=== PATIENT | male | born 1970 | race Caucasian/White ===

== ENCOUNTER 2022-07-18 06:35 | Emergency (ER) | payer OTHER, SELFPAY ==
[2022-07-18 06:36] VITALS: BP 165/108; PULSE 103; RESP 22; TEMP 36.6; O2SAT 97; BMI 33.3
--- NOTE | 2022-07-18 06:41 | EKG12_ITS ---
Test Reason : CP Blood Pressure : / mmHG Vent. Rate : 099 BPM Atrial Rate : 099 BPM P-R Int : 156 ms QRS Dur : 086 ms QT Int : 340 ms P-R-T Axes : 047 045 029 degrees QTc Int : 436 ms Normal sinus rhythm Normal ECG Confirmed by GINNA WAKEFIELD, PALOMA ([id number]), staff editor RAMYA RAMOS ([id number]) on 07/19/2022 7:42:29 AM Referred By: BERNADETTE Confirmed By:PALOMA CHACKO MD
--- NOTE | 2022-07-18 06:41 | RAD_ITS ---
INDICATION: CHEST PAIN EXAMINATION/TECHNIQUE: X-RAY - XR Chest 1 View COMPARISON: None. FINDINGS: LINES/DEVICES: None. LUNGS: Mild emphysematous changes within upper lungs. No pulmonary edema or focal airspace consolidation. No sizable pleural effusion. No pneumothorax detected. MEDIASTINUM AND CARDIOVASCULAR STRUCTURES: Heart size within normal limits. Mediastinal contours unremarkable. BONES AND SOFT TISSUES: No acute findings. RAD/Chest 1 View (Portable) IMPRESSION: COPD Electronically Signed: Adama Renteria MD at 7:24 EDT ,
[2022-07-18 07:01] LABS: Absolute Lymphocyte Count 2.33 X10^3/uL (0.83-4.51); Absolute Neutrophil Count 3.1 X10^3/uL (2.0-7.7); Basophil# 0.04 X10^3/uL; Basophil% 0.6 % (0-1); Eosinophil# 0.29 X10^3/uL; Eosinophils% 4.4 % (0-5); Hematocrit 45.1 % (40-54); Lymphocyte # 2.33 X10^3/ul (0.83-4.51); Mean Corp Hgb Conc 33.3 g/dL (32-36); Mean Corpuscular Hgb 28.8 pg (27.0-32.0); Mean Corpuscular Volume 86.6 fL (80-94); Mean Platelet Vol. 9.6 fl (6.2-12.0); Monocyte# 0.91 X10^3/uL; Monocyte% 13.7 % (0-10); NRBC Flagged by Analyzer 0 % (0-5); Neutrophil # 3.05 X10^3/uL (2.7-7.7); Neutrophil % 45.7 % (47-70); Platelet Count 271 K/mm3 (150-450); RBC Distribution Width CV 13.1 % (11.6-14.6); Red Blood Count 5.21 M/mm3 (4.6-6.2); White Blood Count 6.7 K/mm3 (4.4-11.0)
[2022-07-18 07:17] LABS: Anion Gap 7 (5-15); BUN 18 mg/dL (7-18); Calcium,Total 9.1 mg/dL (8.5-10.1); Chloride 102 mmol/L (98-107); EST Glomerular Filtration Rate 84 mL/min (>60); Est Glom Filt Rate - Afr Amer 102 mL/min (>60); Estimated Creatinine Clearance 88.38 ml/min; Glucose 111 mg/dL (74-106); Potassium 4.1 mmol/L (3.5-5.1); Sodium Level 137 mmol/L (136-145); Troponin-I HS 6 pg/mL (3.0-78.0)
--- NOTE | 2022-07-18 07:36 | EDS_ITS ---
HPI History of Present Illness Chief Complaint: Chest Pain Informant: patient Onset/Context/Timing Onset: Today Activity at onset: sudden Timing: Intermittent and Lasts (Few seconds) Quality: Positive for Burning and Sharp Location: Substernal and Left Parasternal Worsened By: Nothing Relieved By: Nothing Associated Symptoms: Positive for Diaphoresis and Acid Reflux; Negative for Nausea, Vomiting, Dyspnea, Cough, Fever, Lightheadedness or Palpitations Narrative Narrative: Patient presents with chest pain that began this morning. Patient states it was intermittent throughout the morning. Patient states it lasts a few seconds. Patient describes the pain as sharp and burning. Patient states it is over the substernal and left parasternal area. Patient states nothing makes it better nothing makes it worse. Patient states he did break out into a sweat this morning. Patient also states he has a history of acid reflux. Patient denies any fevers or chills. Patient denies any shortness of breath. Patient denies any nausea or vomiting. Patient denies any history of PE risk factors. Patient has a history of hypertension but denies any other cardiac risk factors. [facility] Medical History (Updated 07/18/22 @ 10:[address] Homero Hutson DO) Hypertension Home Medications lisinopril 10 mg tablet (Zestril) 10 mg PO DAILY 07/18/22 [History Last Taken Unknown] Allergy/AdvReac Type Severity Reaction Status Date / Time No Known Allergies Allergy Verified 07/18/22 06:42 Surgical History (Updated 07/18/22 @ 07:[address] Homero Hutson DO) S/P excision of lipoma Social History Smoking Status: Never smoker ROS ROS ED Constitutional Constitutional ED: Reports sweats; Denies chills or fever(s) Eyes Eyes: Denies blurry vision or change in vision ENT ENT ED: Denies rhinorrhea or sore throat Cardiovascular Cardiovascular: Reports chest pain; Denies palpitations Respiratory/Chest Respiratory/Chest: Denies cough or dyspnea Gastrointestinal Gastrointestinal: Denies abdominal pain, nausea or vomiting Genitourinary Genitourinary ED: Denies dysuria or hematuria Musculoskeletal Musculoskeletal: Denies back pain or neck pain Integumentary Denies abscess or rash Neurologic Neurologic: Denies headache(s) or weakness Allergic/Immunologic Allergic/Immunologic ED: Denies mouth swelling or urticaria EXAM Physical Exam Const Vital Signs: 07/18/22 06:36 07/18/22 06:40 07/18/22 08:32 Temperature 97.8 F Temperature Source Temporal Pulse Rate 103 H 105 H Respiratory Rate 22 H 14 Respiratory Effort Normal Non-Labored Blood Pressure 165/108 H 142/87 H Blood Pressure Mean 127 105 Pulse Ox 97 98 Oxygen Delivery Method Room Air Room Air 07/18/22 10:13 Temperature Temperature Source Pulse Rate 92 Respiratory Rate 18 Respiratory Effort Blood Pressure 128/88 H Blood Pressure Mean 101 Pulse Ox 95 Oxygen Delivery Method Room Air Positive well nourished and well developed General Appearance ED: well developed and NAD HEENT Reports moist mucous membranes normocephalic and atraumatic Eyes PERRL and EOMs intact bilaterally Neck supple and no JVD Chest Wall palpation of chest normal Resp normal respiratory effort and clear to auscultation bilaterally Effort and Inspection: Negative for respiratory distress Cardio regular rate, regular rhythm and no murmurs GI normal to inspection, nondistended, normoactive bowel sounds, soft to palpation, non-tender and non-distended Extremity normal to inspection General Extremety ED: Negative for edema or tenderness General Extremity: Negative for edema Neuro oriented x3, CN's II-XII intact bilaterally and no sensory deficits noted Sensorium / Orientation: awake and alert Motor Exam: strength 5/5 throughout Psych mental status grossly normal Heart Score History: Slightly/Non-Suspicious ECG: Normal Age: >45 - <65 years Risk Factors: 1 or 2 Risk Factors Troponin: </= Normal Limit Score: 2 MDM MDM MDM Narrative Medical decision making narrative: EKG was obtained. On my interpretation, it showed a normal sinus rhythm with a rate of 99. NE interval, QRS interval, and QTc intervals were all normal. Gary was normal. There are no acute ST or T wave changes. Portable 1 view chest x- ray was obtained. On my interpretation, lung oreilly are clear. There is normal cardiac silhouette. Bony thorax is normal. There is no acute process noted. Radiologist also interpreted the x-ray and agrees. CBC was within normal limits. Basic metabolic profile was essentially within normal limits. High- sensitivity troponin was normal. 2-hour repeat high-sensitivity troponin was normal. Patient was given a GI cocktail here. Patient had no change in his pain with this. Patient has a HEART score of 2. Patient was advised that this is low risk for acute cardiac event. Patient was instructed to follow-up with his primary care physician in 5 to 7 days. Patient understood and was agreeable with the plan. All questions were answered. Lab Data Attestation: I reviewed the patient's lab results. Labs: Laboratory Results - last 24 hr 07/18/22 07/18/22 07/18/22 06:40 06:40 09:00 WBC 6.7 RBC 5.21 Hgb 15.0 Hct 45.1 MCV 86.6 MCH 28.8 MCHC 33.3 RDW Std Deviation 41.0 RDW Coeff of Andressa 13.1 Plt Count 271 MPV 9.6 Immature Gran % (Auto) 0.600 Neut % (Auto) 45.7 L Lymph % (Auto) 35.0 Nance % (Auto) 13.7 H Eos % (Auto) 4.4 Baso % (Auto) 0.6 Absolute Neuts (auto) 3.1 Absolute Lymphs (auto) 2.33 Nucleated RBC % 0 Sodium 137 Potassium 4.1 Chloride 102 Carbon Dioxide 28.0 Anion Gap 7 BUN 18 Creatinine 1.00 Estim Creat Clear Calc 88.38 Est GFR (MDRD) Af Amer 102 Est GFR (MDRD) Non-Af 84 BUN/Creatinine Ratio 18.0 Glucose 111 H Calcium 9.1 Troponin I High Sens 6 5 Radiography Chest X-Ray - ED: 1 View, Read by ED Physician, Read by Radiologist and No Acute Disease Diagnostic Testing: Clinical Impression(s) from Imaging Studies Chest X-Ray 07/18/22 06:41 IMPRESSION: COPD Electronically Signed: Adama Renteria MD at 7:24 EDT , Discharge Plan Triage Chief Complaint: Chest Pain ED Provider: Homero Hutson Dx/Rx/DC Orders Clinical Impression: Chest pain, Hypertension Instructions: ED Chest Pain, Uncertain Cause Prescriptions: No Action lisinopril [Zestril] 10 mg Tablet 10 mg PO DAILY Primary Care Provider: Nick Osorio Referrals: Nick Osorio MD [Primary Care Provider] - 5-7 Days Disposition Disposition: Home, Self Care
[2022-07-18] MEDS: Mag Hydrox/Al Hydrox/Simeth 30 ML UDC PO (08:30)
[2022-07-18 08:32] VITALS: BP 142/87; PULSE 105; RESP 14; O2SAT 98
[2022-07-18 09:49] LABS: Troponin-I HS 5 pg/mL (3.0-78.0)
[2022-07-18 10:13] VITALS: BP 128/88; PULSE 92; RESP 18; O2SAT 95
[2022-07-18 10:45] VITALS: BP 128/88
== END 2022-07-18 10:46 | disposition home or self-care (01) ==
PROVIDERS: Emergency Provider Emergency Medicine; PCP Internal Medicine; Visit Provider Emergency Medicine
DX: R07.9 Chest pain, unspecified (principal); I10 Essential (primary) hypertension; Z79.899 Other long term (current) drug therapy
CPT/HCPCS: 71045; 80048; 84484; 85025; 93005; 99283; A4216

== ENCOUNTER → 2022-09-21 | Outpatient (CLI) | payer OTHER, SELFPAY ==
--- NOTE | 2022-09-21 13:00 | MASS_PTH ---
PATIENT: JESICA CRANE [facility] U[facility][id number] AGE/SX: 52/M ROOM: RE09/21/[address]: Dr. Glen Fatima MD : 1970 BED: DIS: 09/21/2022 SPEC #: [id number] RECD: 09/22/22 08:53 STATUS: LUIS SMALLS #: [id number] VAL: 09/21/22 13:[address]: Glen Fatima DEPT: SURGICAL PATHOLOGY RECD BY: Nichole Richmond ENTERED: 09/22/22 08:53 SP TYPE: Mass OTHR DR: Dr. Nick Osorio MD Tissues: Back, NOS Procedures: Surgery Specimen Level III HEADER OPERATION: Excision subcutaneous mass on back PRE-OP DIAGNOSIS: Subcutaneous mass on back TISSUE SUBMITTED: Left upper back mass MICROSCOPIC DIAGNOSIS Soft tissue mass of left upper back, excision: Mature adipose tissue consistent with fibrolipoma. AM:rhonda 09/23/2022 MICROSCOPIC DESCRIPTION Slides are reviewed. GROSS DESCRIPTION Received in fixative is one container labeled with the patient's name and designated left upper back mass. The specimen consists of a lobulated fragment of yellow fatty tissue measuring 6.6 x 4.5 x 2.2 cm. Serial sections reveal homogenous yellow cut surfaces. Back Padder sections are submitted in three cassettes. / AM:rhonda 09/22/2022 TC:1 CPT: 56028
== END | disposition home or self-care (01) ==
LOC: LABSPEC 16:31
PROVIDERS: PCP Internal Medicine; Visit Provider Surgery
DX: R22.2 Localized swelling, mass and lump, trunk (principal)
CPT/HCPCS: 88304; 88305

== ENCOUNTER → 2022-11-23 | Outpatient (CLI) | payer OTHER, SELFPAY ==
--- NOTE | 2022-11-23 14:30 | LES_PTH ---
PATIENT: JESICA CRANE LOC: [facility] U#:[id number] AGE/SX: 52/M ROOM: RE11/23/[address]: Dr. Glen Fatima MD : 1970 BED: DIS: 11/23/2022 SPEC #: [id number] RECD: 11/23/22 15:26 STATUS: LUIS NESSChevy #: [id number] VAL: 11/23/22 14:[address]: Glen Fatima DEPT: SURGICAL PATHOLOGY RECD BY: Nichole Richmond ENTERED: 11/24/22 09:45 SP TYPE: Lesion OTHR DR: Dr. Nick Osorio MD Tissues: Skin of foot, NOS Procedures: Surgery Specimen Level IV HEADER OPERATION: Excision, right foot lesion PRE-OP DIAGNOSIS: Right foot lesion TISSUE SUBMITTED: Right foot tissue MICROSCOPIC DIAGNOSIS Right foot skin lesion, excision: Consistent with polypoid fibroma. AM:rhonda 11/25/2022 COMMENT Case has been reviewed in consultation with Dr. Johns who concurs with the above diagnosis. IDC:SJ MICROSCOPIC DESCRIPTION Slides are reviewed. GROSS DESCRIPTION Received in fixative is one container labeled with the patient's name and designated right foot. The specimen consists of a piece of light ruiz excised skin measuring 2 x 1 x 0.4 cm. The cutaneous surface displays a ruiz-white plaque-like lesion measuring 1 cm in diameter. The specimen is inked, serially sectioned totally submitted in one cassette. / AM:rg 11/24/2022 TC:5 CPT: 77683
== END | disposition home or self-care (01) ==
LOC: LABSPEC 16:12
PROVIDERS: PCP Internal Medicine; Referring Provider Surgery; Visit Provider Surgery
DX: L98.9 Disorder of the skin and subcutaneous tissue, unspecified (principal)
CPT/HCPCS: 88305